=== PATIENT | male | born 1950 | race Caucasian/White ===

== ENCOUNTER 2023-03-06 13:54 | Outpatient (REF) | payer MEDICARE, OTHER, SELFPAY ==
--- NOTE | ~2023-03-06 | CT_ITS ---
EXAMINATION: CT ABDOMEN AND PELVIS WITH CONTRAST CLINICAL INFORMATION: Lower abdominal pain. COMPARISON: None available. TECHNIQUE: Multidetector volumetric images were obtained from the superior aspect of the liver through the pubic symphysis following administration 85 mL of Omnipaque 350 intravenous contrast. Sagittal and coronal reformatted images were obtained on the technologist's workstation. Oral contrast: Yes This CT examination was performed using dose optimization techniques as appropriate, variously including the following: *Automated exposure control *Adjustment of mA and/or kV according to patient size (this includes techniques or standardized protocols for targeted exams where dose is matched to indication/reason for exam; i.e. extremities or head) *Use of iterative reconstruction technique DLP: 552 mGy-cm FINDINGS: LUNG BASES: The visualized lung bases are unremarkable. LIVER, GALLBLADDER, AND BILIARY TREE: The liver is normal in size, shape, and attenuation. No focal hepatic lesion or biliary ductal dilatation is present. The gallbladder is unremarkable with no evidence of radiopaque gallstones, gallbladder wall thickening, or obvious pericholecystic inflammatory changes. PANCREAS: Unremarkable. SPLEEN: Unremarkable. ADRENAL GLANDS: Unremarkable. KIDNEYS AND URETERS: The kidneys are normal in size, shape, and attenuation. No hydronephrosis, hydroureter, or calculi seen. No perinephric stranding. Exophytic 2.5 cm hypodense lesion at the midpole right kidney. Density measurement 40 Hounsfield units. This is indeterminate. Consider renal ultrasound for further evaluation. BLADDER: Bladder is nearly empty. No bladder calculus or inflammation. GASTROINTESTINAL TRACT: There are numerous diverticula of the sigmoid and descending colon with scattered diverticula of the right colon. There is diverticulitis of the proximal sigmoid colon. There is bowel wall thickening and surrounding edema. There is a large loculated abscess with surrounding edema adjacent to the diverticulitis consistent with perforation. This has an air-fluid level. This collection measures approximately 9 x 8 x 7 cm. No free air. No abnormally dilated bowel loop. Nonobstructive bowel pattern. The appendix is normal. ABDOMINAL WALL: No significant hernia is appreciated. LYMPH NODES: Normal. VASCULAR: Unremarkable. PELVIC VISCERA: Unremarkable. OSSEOUS STRUCTURES: Multilevel degenerative spondylosis spine. CT/CT abdomen pelvis w IV con IMPRESSION: 1. Diverticulitis of the proximal sigmoid colon. There is a large abscess adjacent to the diverticulitis. 2. Indeterminate 2.5 cm hypodense lesion midpole right kidney. Consider renal ultrasound for further evaluation. Fleischner guidelines were followed. This critical result was discussed with Rukhsana Gaspar NP on 1752 hours, 03/06/2023 and it was ascertained that the content and urgency of the report was understood at the time of direct communication.
[2023-03-06] MEDS: iohexoL 350 MG/ML 100 ML INFUS..BTL IV (16:37)
[2023-03-06] MEDS: Barium Sulfate Oral (Mocha) 450 ML ORAL.SUSP 900 ML PO (16:38)
== END 2023-03-06 13:55 | disposition home or self-care (01) ==
LOC: HO.CT 13:54
PROVIDERS: PCP Internal Medicine; Visit Provider Internal Medicine
DX: R10.30 Lower abdominal pain, unspecified (principal)
CPT/HCPCS: 74177; Q9967